=== PATIENT | female | born 1990 | race Caucasian/White ===

== ENCOUNTER 2018-12-25 08:15 | Outpatient (RCR) | payer OTHER ==
--- NOTE | 2018-12-05 17:24 | PT INITIAL EVALUATION ---
MEDICAL DIAGNOSIS: low back pain with radiating pain TREATMENT DIAGNOSIS: same DATE OF ONSET: 03/24/18 SUBJECTIVE: Prabhu Parker presents to physical therapy of low back pain with radiating pain down her L LE that started gradually March 2018. She reports that this is her 3rd physical therapist and has tried everything from stretching, strengthening, dry needling, myofascial release, massage,and trigger point without any lasting relief greater than 12 hours. She reports that she had an MRI last September 2018, which demonstrated no abnormalities within her low back; however, she continues to have the constant pain. She reports that she was released from activity but any activity that involves running, climbing stairs, or crossfit increased the radiating pain down her L LE. She reports that she would like to be painfree and return to sport pain free as she rates her pain to be 3/10. Pain location is L4-5 central with radiating pain to L buttock and described as achy, constant. Pain scale is 3 on a ten point pain scale. 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 ROM: Trunk AROM: flexion: major restriction with pain. extension: minimal restriction with pain, side gliding R: NIL with no pain, side gliding L: NIL with no pain. Strength: R LE strength: 5/5. L LE strength (especially hamstrings and quadriceps): 4/5/. Palpation: TTP: central L4-5 Sensation: Intact L2-S2 Special Tests: Repeated extension in lying: increased pain during the test and centralized low back pain and increased AROM in all directions. Extension in lying with increased static position: increased pain during the test and centralized low back pain and increased AROM in all directions. Extension in lying with prone press ups and manual pressure: increased the pain, centralized low back pain, and increased trunk AROM in flexion but decreased L side gliding. Mobility: Independent Gait: No abnormalities ASSESSMENT: Prabhu will benefit from skilled physical therapy addressing the listed impairments to improve function and QOL. Based on her examination, her signs and symptoms are consistent with derangement and specifically posterior derangement that centralized with extension based principles. Short Term Goals 2 weeks: Pt will demonstrate directional preference and centralized low back pain to improve function and QOL. 4 weeks: Pt will demonstrate abolished low back pain to improve function and QOL. 6 weeks: Pt will demonstrates abolished low back pain and return to crossfit and running without any problem to improve function and QOL. Patient's Goals decrease pain, return to crossfit, and return to running PLAN: Patient to be seen for Manual Therapy/STM/MET Strengthening/condition Range of Motion Spinal Stabilization Work Hardening/Cond Stretching Neuromuscular Re-ed Closed Chain Program Posture/Body mechanics Home Exercise Program Therapeutic Activities 2-3x/week for 6 Weeks If you have any questions, comments, or concerns about this report or plan, please contact me at . Thank you, Kelvin Whitley, PT, DPT MTDD
[~2018-12-25 08:15] MED LIST: ACE3 PO; ACET-1718 PO; DOCU240C67 PO; IBU800 PO; IBUP800T37 PO; Lanolin TP; PREN-161 PO
--- NOTE | 2018-12-28 07:34 | PT PLAN OF CARE ---
Physician: Direct Access Patient is being seen: 2x/week Therapist: Kelvin Whitley PT, DPT Medical Diagnosis: low back pain with radiating pain Treatment Diagnosis: same Date of Onset: 03/24/18 Date of Initial Evaluation: 12/04/18 Date patient was last seen: 12/25/18 Number of treatments: 5 Number of cancellations/No shows: 0 INTERVENTIONS: Manual Therapy/STM/MET Strengthening/condition Range of Motion Spinal Stabilization Work Hardening/Cond Stretching Neuromuscular Re-ed Closed Chain Program Posture/Body mechanics Home Exercise Program Therapeutic Activities GOALS: 2 weeks: Pt will demonstrate directional preference and centralized low back pain to improve function and QOL. 4 weeks: Pt will demonstrate abolished low back pain to improve function and QOL. 6 weeks: Pt will demonstrates abolished low back pain and return to crossfit and running without any problem to improve function and QOL. PATIENT'S GOAL: decrease pain, return to crossfit, and return to running Status of Patient's Goals: Not Met Patient Compliance: Excellent Prognosis: Excellent Reasons for continuing therapy: This is a discharge note for Vic Parker. Based on our 5 visits, her signs and symptoms are consistent with the classification of mechanically unresponsive radiculopathy. Throughout the sessions, she demonstrated improvements during the sessions; however, there was no lasting change. She was educated to stay active and commence a programme of general exercise during the period of recovery, so that function is maintained. As a result, she will be discharged from PT to [facility]. Posture: She demonstrates minimal B rounded shoulders, minimal thoracic kyphosis, and minimal decreased lumbar lordosis. ROM: Trunk AROM: flexion: major restriction with pain. extension: minimal restriction with pain, side gliding R: NIL with no pain, side gliding L: NIL with no pain. Strength: R LE strength: 5/5. L LE strength (especially hamstrings and quadriceps): 4/5/. Palpation: TTP: central L4-5 Mobility: Independent If you have any questions, please contact me at [phone]. Thank you, Kelvin Whitley, PT, DPT [facility]
== END 2018-12-25 18:00 | disposition home or self-care (01) ==
LOC: PT 08:15
PROVIDERS: ATTEND Orthopaedic Surgery
DX: M54.5 Low back pain (principal)
CPT/HCPCS: 97161